=== PATIENT | male | born 1975 | race Caucasian/White ===

== ENCOUNTER 2021-08-16 20:26 | Emergency (ER) | payer SELFPAY ==
[2021-08-16 20:27] VITALS: BP 121/79; PULSE 70; RESP 16; TEMP 37.6; O2SAT 97; BMI 22.8
--- NOTE | 2021-08-16 20:43 | ED.RN ---
Pt comes to the desk and states you guys are so busy I'm going to just go to [place]
== END 2021-08-16 20:42 | disposition left against medical advice (07) ==
LOC: ED 20:44
DX: R05.9 Cough, unspecified (principal); Z53.21 Procedure and treatment not carried out due to patient leaving prior to being seen by health care provider

== ENCOUNTER 2021-09-06 16:54 | Emergency (ER) | payer SELFPAY ==
[2021-09-06 16:55] VITALS: BP 120/76; PULSE 70; RESP 16; TEMP 35.8; BMI 22.4
--- NOTE | 2021-09-06 17:23 | RAD_ITS ---
STUDY: X-RAY - RIGHT HAND REASON FOR EXAM: Male, 45 years old. Pain after trauma TECHNIQUE: 3 view(s) of the hand. COMPARISON: None. FINDINGS: Please see the impression. RAD/Hand Min 3 Views IMPRESSION: Acute nondisplaced fracture of the fifth metacarpal head. No radiopaque foreign body. Electronically Signed: Teofilo Aparicio MD at 18:30 EST Tel , Service support ,
--- NOTE | 2021-09-06 17:24 | EX.ED.UPPERE ---
HPI History of Present Illness Chief Complaint: Upper Extremity Injury Informant: patient Occured/Mechanism Mechanism/Context: Yes crush Onset/Context/Timing Onset: Yesterday Current Severity: Mild Maximum Severity: Mild Narrative Narrative: Patient presents after right hand injury. Yesterday he was stacking firewood when 1 log rolled back and crushed his right hand. He was not wearing gloves at the time. Patient has continued pain and swelling to the fourth and fifth MCP joints today. PFSH PFSH Medical History Smoker Home Medications tramadol 50 mg PO Q6H PRN 5 Days #20 tab 09/06/21 [Rx Last Taken Unknown] Allergy/AdvReac Type Severity Reaction Status Date / Time No Known Allergies Allergy Verified 09/06/21 16:57 Social History Smoking Status: Current every day smoker tobacco type: cigarettes ROS ROS ED Constitutional Constitutional ED: Denies chills or fever(s) Eyes Eyes: Denies change in vision ENT ENT ED: Denies ear pain or rhinorrhea Cardiovascular Cardiovascular: Denies chest pain or palpitations Respiratory/Chest Respiratory/Chest: Denies dyspnea Gastrointestinal Gastrointestinal: Denies abdominal pain Musculoskeletal Musculoskeletal: Reports other Details: Right hand pain and swelling Integumentary Denies Abrasions or rash Neurologic Neurologic: Denies headache(s) or paresthesias Allergic/Immunologic Allergic/Immunologic ED: Denies urticaria EXAM Physical Exam Const Vital Signs: 09/06/21 16:55 Temperature 96.5 F L Temperature Source Temporal Pulse Rate 70 Respiratory Rate 16 Blood Pressure 120/76 Blood Pressure Mean 90 Positive well nourished and well developed General Appearance ED: well developed HEENT normocephalic and atraumatic Eyes PERRL and EOMs intact bilaterally Chest Wall inspection of chest normal and palpation of chest normal Resp normal respiratory effort and clear to auscultation bilaterally Cardio regular rate and regular rhythm GI non-tender Palpation: soft Extremity Extremity Narrative: Edema and tenderness to palpation over the fourth and fifth MCP joints. Good cap refill and sensation distally. No tenderness at the wrist or forearm. Neuro oriented x3 Sensorium / Orientation: alert Psych mental status grossly normal Skin Lesions: no lesions Rashes: no rashes MDM MDM MDM Narrative Medical decision making narrative: Right hand x-rays obtained. Patient declined pain medication. Treatment and Re-Evaluation Comments:: Right hand x-rays per my interpretation reveal a fracture over the distal fifth metacarpal at the MCP joint. X-rays reviewed with the patient and family at bedside. Patient placed in an ulnar gutter splint. Following splint application patient has good cap refill distally. Patient be given prescription for tramadol and referred to Dr. Tyson, on-call for orthopedics. Discharge Plan Triage Chief Complaint: Upper Extremity Injury ED Provider: Germania Saavedra Dx/Rx/DC Orders Clinical Impression: Hand fracture, right Instructions: ED Closed Hand Fracture (Adult) Prescriptions: New tramadol 50 mg tablet 50 mg PO Q6H PRN (Reason: pain) 5 Days Qty: 20 RF: 0 Primary Care Provider: Care Physician,No Primary Referrals: Pernell Tyson MD [STAFF PHYSICIAN] - 5-7 Days Care Physician,No Primary [Primary Care Provider] - Disposition Disposition: Home, Self Care
== END 2021-09-06 18:15 | disposition home or self-care (01) ==
PROVIDERS: Emergency Provider Emergency Medicine; Visit Provider Emergency Medicine
DX: S62.91XA Unspecified fracture of right hand, initial encounter for closed fracture (principal); F17.210 Nicotine dependence, cigarettes, uncomplicated; X58.XXXA Exposure to other specified factors, initial encounter
CPT/HCPCS: 73130; 99282

== ENCOUNTER 2021-09-29 20:39 | Emergency (ER) | payer SELFPAY ==
[2021-09-29 20:40] VITALS: BP 158/82; PULSE 69; RESP 16; TEMP 36.2; O2SAT 99; BMI 22.4
--- NOTE | 2021-09-29 20:47 | EDS_ITS ---
HPI History of Present Illness Chief Complaint: Fall Detail of Chief Complaint: Fall with injury to left chest about 2 hours ago Informant: patient Onset/Context/Timing Current Severity: Severe Narrative Narrative: Patient presents to the emergency department after sustaining a fall on the ice about 2 hours ago and injuring his left chest. Patient states that he was carrying a drill underneath his left arm and fell directly onto the drill. He complains of pain with deep breath and movement. He denies hemoptysis. Denies other injuries. PFSH PFSH Medical History Smoker Home Medications tramadol 50 mg PO Q6H PRN 5 Days #20 tab 09/06/21 [Rx Last Taken Unknown] hydrocodone-acetaminophen 1 tab PO Q4H PRN PRN 2 Days #14 tablet 09/29/21 [Rx Last Taken Unknown] Allergy/AdvReac Type Severity Reaction Status Date / Time No Known Allergies Allergy Verified 09/29/21 20:42 Social History Smoking Status: Current every day smoker tobacco type: cigarettes ROS ROS ED Constitutional Constitutional ED: Reports systems reviewed and no addt'l complaints, except as documented; Denies body ache(s), change in weight or chills Eyes Eyes: Denies acute decrease in peripheral vision, change in vision, double vision or loss of vision ENT ENT ED: Reports none; Denies ear pain, lip swelling, loss taste/smell, neck pain, otalgia or sore throat Cardiovascular Cardiovascular: Reports none and other Details: Left chest wall pain ; Denies abdominal pain, chest pain with activity, leg edema, lightheadedness, palpitations, rapid heart rate or syncope Respiratory/Chest Respiratory/Chest: Reports none; Denies change in mental status, dry cough, dyspnea, hemoptysis, shortness of breath at rest or shortness of breath with exertion Gastrointestinal Gastrointestinal: Reports none; Denies abdominal pain, change in stool character, diarrhea, hematemesis, hematochezia, melena, rectal bleeding or vomiting Genitourinary Genitourinary ED: Reports none; Denies abdominal discomfort, anuria, dysuria, genital pain or polyuria Musculoskeletal Musculoskeletal: Reports none; Denies arthralgias, back pain, difficulty walking, extremity pain, muscle weakness or myalgias Integumentary Reports none; Denies abscess or rash Neurologic Neurologic: Reports none; Denies abnormal gait, confusion, focal weakness, frequent falls, headache(s), loss of vision, numbness, paresthesias, radicular pain, vertigo or weakness Psychiatric Psychiatric: Reports systems reviewed and no addt'l complaints, except as documented and none; Denies behavioral changes, confusion, difficulty concentrating, hallucinations, suicidal ideation, tactile hallucinations or visual hallucinations Endocrine Endocrinology: Denies none, cold intolerance, excessive sweating, fatigue or heat intolerance Hematologic/Lymphatic Hematologic/Lymphatic: Reports none; Denies anemia, easy bleeding or easy bruising Allergic/Immunologic Allergic/Immunologic ED: Denies as per HPI, none, lip swelling, mouth swelling, throat swelling, tongue swelling or hives EXAM Physical Exam Const Vital Signs: 09/29/21 20:40 09/29/21 20:42 Temperature 97.2 F L Temperature Source Temporal Pulse Rate 69 Respiratory Rate 16 Respiratory Effort Normal Respiratory Pattern Normal Blood Pressure 158/82 H Blood Pressure Mean 107 Pulse Ox 99 Oxygen Delivery Method Room Air Positive well nourished and well developed General Appearance ED: well developed and NAD HEENT Reports TM's clear and moist mucous membranes normocephalic and atraumatic; Negative for trauma or tenderness Tympanic Membrane ED: Yes TM's clear Eyes PERRL and EOMs intact bilaterally General Eye ED: Negative for pale conjunctiva or scleral icterus Neck no lymphadenopathy, supple and no JVD General: Negative for tenderness Chest Wall palpation of chest normal Chest Narrative: Patient has tenderness palpation over the left mid anterior chest wall into the midaxillary line that seems to reproduce his pain. There is no crepitus or subcu emphysema. There is no ecchymosis or bruising. Chest: Negative for tenderness Resp normal respiratory effort and clear to auscultation bilaterally Effort and Inspection: Negative for respiratory distress or pain with movement Auscultation: Negative for rhonchi, wheezes or diminished lung sounds Cardio regular rate, regular rhythm, S1 normal heart sound, S2 normal heart sound and no murmurs Peripheral Pulses: pulses 2+ throughout GI normal to inspection, nondistended, normoactive bowel sounds, soft to palpation, non-tender, non-distended and no masses Back/Spine no CVA tenderness and no thoracic nor lumbar tenderness Extremity normal to inspection General Extremety ED: Negative for edema General Extremity: Negative for edema Neuro oriented x3, CN's II-XII intact bilaterally, no sensory deficits noted and gait normal Sensorium / Orientation: awake, alert, oriented to person, oriented to place and oriented to time Motor Exam: strength 5/5 throughout and strength abnormal Psych mental status grossly normal Skin no rashes or lesions noted and no wounds MDM MDM MDM Narrative Medical decision making narrative: Patient was given 1 Spring p.o. At this point I suspect rib contusion although cannot rule out acute nondisplaced fracture of the rib. Patient will be given a prescription for Spring for pain. He is to follow-up with primary care physician radio communication coordinator for no doc within the next 5 to 7 days. He is advised to return if increasing shortness of breath, hemoptysis, worsening pain, or conditions worsen anyway. Radiography Diagnostic Testing: Clinical Impression(s) from Imaging Studies Ribs w/Chest X-Ray 09/29/21 20:50 IMPRESSION: Negative chest and left ribs series. Electronically Signed: Gualberto Rogers MD at 21:12 EST Reading Location ID and State: [facility] / [place] , Service support , Three-view x-rays with PA chest obtained interpreted by myself as no acute rib fractures and no evidence of pneumothorax. Radiology was in agreement. Discharge Plan Triage Chief Complaint: Fall ED Provider: Zoya Love Dx/Rx/DC Orders Clinical Impression: Fall, Chest wall contusion Instructions: ED Mechanical Fall, ED Contusion, Rib Prescriptions: New hydrocodone-acetaminophen [hydrocodone-acetaminophen] 1 TABLET tablet 1 tab PO Q4H PRN PRN (Reason: Pain) 2 Days Qty: 14 RF: 0 No Action tramadol 50 mg tablet 50 mg PO Q6H PRN (Reason: pain) 5 Days Qty: 20 RF: 0 Primary Care Provider: Care Physician,No Primary Referrals: Tho Stratton MD [STAFF PHYSICIAN] - 3-5 Days Care Physician,No Primary [Primary Care Provider] - Disposition Disposition: Home, Self Care
--- NOTE | 2021-09-29 20:50 | RAD_ITS ---
EXAM: XR LEFT RIBS AND AP CHEST, 3 OR MORE VIEWS CLINICAL INDICATION: injury pain TECHNIQUE: Frontal and oblique views of the left ribs and frontal view of the chest. This report was created using [employer] report generation technology. COMPARISON: None. FINDINGS: LUNGS AND PLEURAL SPACES: Unremarkable. No consolidation or edema. No pneumothorax. No effusion. HEART: Unremarkable. Cardiac silhouette not enlarged. MEDIASTINUM: Central airways and mediastinal contour are unremarkable. BONES/JOINTS: Unremarkable. No evidence of displaced rib fractures. RAD/Ribs Uni Min 3V w/PA Chest IMPRESSION: Negative chest and left ribs series. Electronically Signed: Gualberto Rogers MD at 21:12 EST ,
[2021-09-29] MEDS: HYDROcodone Bitartrate/Apap 5/325 Tablet PO (21:29)
== END 2021-09-29 21:33 | disposition home or self-care (01) ==
PROVIDERS: Emergency Provider Emergency Medicine; Visit Provider Emergency Medicine
DX: S20.212A Contusion of left front wall of thorax, initial encounter (principal); W01.198A Fall on same level from slipping, tripping and stumbling with subsequent striking against other object, initial encounter; F17.210 Nicotine dependence, cigarettes, uncomplicated
CPT/HCPCS: 71101; 99283

== ENCOUNTER 2022-02-05 11:21 | Emergency (ER) | payer MEDICAID, SELFPAY ==
[2022-02-05 11:23] VITALS: BP 118/78; PULSE 63; RESP 16; TEMP 36.6; O2SAT 99; BMI 22.4
--- NOTE | 2022-02-05 11:41 | EX.ED.UPPERE ---
HPI History of Present Illness Chief Complaint: Laceration Detail of Chief Complaint: Laceration right thumb Informant: patient Occured/Mechanism Comment: Patient radial side right thumb proximal IP joint Onset/Context/Timing Context: Sudden Onset Timing: - (Bleeding for 1 hour) Quality of Pain: - (Denies pain) Location: Dorsal radial side right thumb proximal IP joint Current Severity: Mild Maximum Severity: Moderate Worsened by: Not applicable Relieved by: Nothing Associated Symptoms Associated Symptoms: Negative for Parasthesia, Weakness or Loss of Funtion Narrative Narrative: Patient is a 46-year-old [id number] male who presents with laceration to his thumb. This occurred while drywalling. Last tetanus was 3 to 4 years ago. He denies paresthesia, anesthesia medics. He has no medication allergies. He denies loss of function. Tetanus Immunization: <5 years Prior similar symptoms: Yes Recent Illness/Hospitalization: No PFSH PFSH Medical History Asthma Emphysema lung Smoker Allergy/AdvReac Type Severity Reaction Status Date / Time No Known Allergies Allergy Verified 02/05/22 11:26 Surgical History Hx of cholecystectomy Social History (Updated 02/05/22 @ 11:[address] Faizan Herbert MD) household members: none Smoking Status: Current every day smoker tobacco type: cigarettes substance use type: does not use ROS ROS ED Cardiovascular Cardiovascular: Denies palpitations Gastrointestinal Gastrointestinal: Denies nausea or vomiting Neurologic Neurologic: Reports other Details: And read HPI narrative ; Denies paresthesias or weakness Hematologic/Lymphatic Hematologic/Lymphatic: Denies easy bleeding or easy bruising EXAM Physical Exam Const Vital Signs: 02/05/22 11:23 Temperature 97.8 F Temperature Source Temporal Pulse Rate 63 Respiratory Rate 16 Blood Pressure 118/78 Blood Pressure Mean 91 Pulse Ox 99 Oxygen Delivery Method Room Air Positive well nourished and well developed; Negative for obese, cachectic or contractures General Appearance ED: well developed; Negative for cachectic or contractures Nutritional Appearance: Negative for cachectic or obese HEENT Reports moist mucous membranes normocephalic and atraumatic Eyes PERRL and EOMs intact bilaterally Eyes Narrative: Sclera is anicteric. Conjunctive is pink. Neck full ROM Resp normal respiratory effort Cardio regular rate and regular rhythm Extremity Negative for normal to inspection Extremity Narrative: Flap type laceration dorsal surface right thumb. The extensor pollicis longus and extensor pollicis brevis are functionally intact. Cap refills normal. Sensation is normal. There is no subungual hematoma noted. Neuro oriented x3 and CN's II-XII intact bilaterally Neuro Narrative: Median, radial and ulnar function intact. Sensorium / Orientation: alert, oriented to person, oriented to place and oriented to time Psych mental status grossly normal Skin Lesions: no lesions Rashes: no rashes Trauma: other 2.4 cm in length. Flap-like. MDM MDM MDM Narrative Medical decision making narrative: Patient has a laceration which will require repair. Please read procedure note. There is no neurovascular mice. Procedures Other Procedures Procedure(s): Patient has a 2.4 cm laceration dorsal side right thumb. The thumb was not sized by metacarpal block. Total of 4 cc of 1% lidocaine without epinephrine was used. The wound was irrigated with 200 cc of normal saline. Using 5-0 Ethilon 4 simple interrupted sutures were was placed. Hemostasis controlled. Discharge Plan Triage Chief Complaint: Laceration ED Provider: Faizan Herbert Dx/Rx/DC Orders Clinical Impression: Laceration of right thumb without complication Instructions: ED Laceration, Hand: All Closures Primary Care Provider: Care Physician,No Primary Referrals: Lashawn Castrejon MD [STAFF PHYSICIAN] - 10 Day for suture removal Care Physician,No Primary [Primary Care Provider] - Activity Restrictions/Additional Instructions: 1. Keep wound clean and dry for the next 24 to 48 hours 2. Clean wound with peroxide and Q-tip 3 times a day then apply bacitracin ointment
[2022-02-05 12:21] VITALS: BP 132/64; PULSE 74; RESP 14; TEMP 37.1; O2SAT 100
== END 2022-02-05 12:48 | disposition home or self-care (01) ==
PROVIDERS: Emergency Provider Emergency Medicine; Visit Provider Emergency Medicine
DX: S61.011A Laceration without foreign body of right thumb without damage to nail, initial encounter (principal); W26.8XXA Contact with other sharp object(s), not elsewhere classified, initial encounter; Y93.89 Activity, other specified; F17.210 Nicotine dependence, cigarettes, uncomplicated
CPT/HCPCS: 12001; 99283

== ENCOUNTER 2022-11-28 02:48 | Emergency (ER) | payer MEDICAID, SELFPAY ==
[2022-11-28 02:50] VITALS: BP 130/78; PULSE 102; RESP 10; TEMP 36.4; O2SAT 98; BMI 20.6
[2022-11-28 03:11] LABS: Absolute Lymphocyte Count 3.51 X10^3/uL (0.83-4.51); Absolute Neutrophil Count 5.3 X10^3/uL (2.0-7.7); Basophil# 0.13 X10^3/uL; Basophil% 1.3 % (0-1); Eosinophil# 0.12 X10^3/uL; Eosinophils% 1.2 % (0-5); Hematocrit 38.9 % (40-54); Lymphocyte # 3.51 X10^3/ul (0.83-4.51); Lymphocyte % 35.8 % (19-41); Mean Corpuscular Hgb 31.1 pg (27.0-32.0); Mean Corpuscular Volume 86.4 fL (80-94); Mean Platelet Vol. 9.3 fl (6.2-12.0); Monocyte# 0.72 X10^3/uL; Monocyte% 7.3 % (0-10); NRBC Flagged by Analyzer 0 % (0-5); Neutrophil # 5.29 X10^3/uL (2.7-7.7); Neutrophil % 54.1 % (47-70); Platelet Count 267 K/mm3 (150-450); RBC Distribution Width CV 12.1 % (11.6-14.6); RBC Distribution Width SD 38.5 fl (35.1-43.9); White Blood Count 9.8 K/mm3 (4.4-11.0)
[2022-11-28 03:50] VITALS: BP 110/66; PULSE 79; RESP 21; O2SAT 100
[2022-11-28 03:50] LABS: Anion Gap 6 (5-15); BUN 12 mg/dL (7-18); BUN/Creat Ratio 11.1 RATIO (10-20); Calcium,Total 9.6 mg/dL (8.5-10.1); Chloride 102 mmol/L (98-107); Creatinine, Serum 1.08 mg/dL (0.70-1.30); EST Glomerular Filtration Rate 79 mL/min (>60); Est Glom Filt Rate - Afr Amer 95 mL/min (>60); Estimated Creatinine Clearance 84.18 ml/min; Glucose 129 mg/dL (74-106); Potassium 3.3 mmol/L (3.5-5.1); Sodium Level 134 mmol/L (136-145)
[2022-11-28 03:56] LABS: AST(SGOT) 15 U/L (15-37); Alanine Aminotransfer ALT/SGPT 23 U/L (16-61); Albumin, Serum 3.9 g/dL (3.2-5.0); Alkaline Phosphatase 55 U/L (45-117); Bilirubin, Direct 0.14 mg/dL (0.00-0.30); Globulin 3.2 g/dL (2.2-4.2); Protein, Total 7.1 g/dL (6.4-8.2)
[2022-11-28 04:00] VITALS: BP 118/80; PULSE 74; RESP 19; O2SAT 100
[2022-11-28 05:00] VITALS: BP 106/80; PULSE 68; RESP 17; O2SAT 100
[2022-11-28 06:00] VITALS: BP 106/63; PULSE 64; RESP 12; O2SAT 100
--- NOTE | 2022-11-28 06:34 | CT_ITS ---
EXAM: CT ABDOMEN AND PELVIS WITH INTRAVENOUS CONTRAST CLINICAL INDICATION: abdominal pain, general illness TECHNIQUE: Helically acquired images were obtained of the abdomen and pelvis with intravenous contrast. This CT exam was performed using one or more of the following dose reduction techniques: automated exposure control, adjustment of the mA and/or kV according to patient size, and/or use of iterative reconstruction technique. This report was created using [employer] report generation technology. CONTRAST: 100 cc of Isovue-370 IV. RADIATION DOSE: CTDIvol = 10.13 mGy, DLP = 520.71 mGy-cm. COMPARISON: None. FINDINGS: LOWER THORAX: Small groundglass opacity nodule measuring 6 mm right lower lobe peripherally abutting the pleura. No cardiomegaly. No significant pericardial effusion. ABDOMEN: LIVER: Unremarkable. Homogeneous. No focal mass. GALLBLADDER AND BILE DUCTS: Cholecystectomy. No intra- or extrahepatic biliary ductal dilation. PANCREAS: Unremarkable. No focal cystic or solid mass. SPLEEN: Unremarkable. Normal size without focal cystic or solid mass. ADRENALS: Unremarkable. No nodules. KIDNEYS AND URETERS: Unremarkable. Normal renal size and position. No hydronephrosis. STOMACH AND BOWEL: Question of mild wall thickening of the transverse colon versus lack of distention. PELVIS: APPENDIX: No evidence of acute appendicitis. BLADDER: Unremarkable. REPRODUCTIVE: Unremarkable as visualized. No mass. ABDOMEN and PELVIS: INTRAPERITONEAL SPACE: Unremarkable. No ascites or other fluid collection. No free air. BONES/JOINTS: Unremarkable. No suspicious lytic or blastic abnormality. SOFT TISSUES: Unremarkable. No discrete abdominal or pelvic wall hernia. VASCULATURE: Unremarkable. Abdominal aorta is non-dilated. LYMPH NODES: Unremarkable. No enlarged lymph nodes. CT/Abdomen/Pelvis W IV Cont ONLY IMPRESSION: 1. Question of mild wall thickening of the transverse colon versus lack of distention. Colitis not excluded. 2. Small groundglass opacity nodule measuring 6 mm right lower lobe peripherally abutting the pleura. 3. Cholecystectomy. RECOMMENDATIONS: Small groundglass opacity nodule measuring 6 mm right lower lobe peripherally abutting the pleura. Fleischner Society Guidelines recommend follow-up chest CT at 6-12 months to confirm persistence. If stable, chest CT every 2 years until 5 years. Electronically Signed: Deandre Becker MD at 7:41 EDT ,
[2022-11-28] MEDS: 0.9% Normal Saline 1,000 ML 999 ML IV (06:40)
[2022-11-28 07:00] VITALS: BP 134/78; PULSE 48; RESP 16; O2SAT 98
[2022-11-28 07:12] LABS: International Normalized Ratio 1.1; Prothrombin Time (Protime)PT. 14.2 SECONDS (11.7-14.9)
[2022-11-28 08:00] LABS: Bacteria 0 SEEN /hpf (None Seen); Mucous, Urine 0 SEEN /hpf (<or=2+); Squamous Epithelial Cells - UA 0 SEEN /hpf (0-5); White Blood Cells 0 SEEN /hpf (0-5)
[2022-11-28 08:11] LABS: Color, Urine Yellow (Yellow); Glucose, Dipstick Normal (Normal); Ketone-Dipstick 50 mg/dl (Negative); Leukocyte Esterase-Dipstick Negative /ul (Negative); Nitrite-Dipstick Negative (Negative); Occult Blood-Urine 10 /ul (Negative); Protein-Dipstick 15 mg/dl (Negative); Urine Bilirubin Dipstick Negative (Negative); Urine Clarity Clear (Clear); Urine Urobilinogen Normal (Normal); Urine pH 6.5 (5.0 - 8.0)
[2022-11-28 08:17] LABS: Red Blood Cells-Urine 0-5 SEEN /hpf (0-5)
[2022-11-28 08:27] LABS: Amphetamine Urine VISTA POSITIVE (<1000 ng/mL); Barbiturate Urine VISTA NEGATIVE (< 200 ng/mL); Benzodiazepine Urine VISTA NEGATIVE (< 200 ng/mL); Cocaine Urine VISTA NEGATIVE (< 300 ng/mL); Ecstacy Urine VISTA POSITIVE (< 500 ng/mL); Methadone Urine VISTA NEGATIVE (< 300 ng/mL); PCP Urine VISTA NEGATIVE (< 25 ng/mL); THC Urine VISTA POSITIVE (< 50 ng/mL); Vista UDS pH Range 6
--- NOTE | 2022-11-28 08:46 | EDS_ITS ---
HPI HPI - GI History of Present Illness Chief Complaint: GI Bleed Informant: patient Narrative Narrative: Patient is a 47-year-old male with ongoing history of what he says is hematemesis as well as hemorrhoids presenting with abdominal pain and concern for GI bleed. Patient tells me he thinks he is in liver failure because having pain over his liver. Initial evaluation patient is quite a poor historian and has a hard time staying focused on his answers as well as finishing his sentences. He is not obtunded however. He states that he was at recently at [facility] on December 12 for bleeding in his GI tract and he was a dmitted but he then left AGAINST MEDICAL ADVICE because he said he got scared. He states tonight he had worsening abdominal pain. His brother is at the bedside however he asked his brother to step out when I am in the room. Patient states he feels that his body is vibrating and cannot move well. Patient does report that he did take some laxatives today because he was feeling constipated. He states he has an appointment to see GI, Dr. Tyson, on . Patient admits to marijuana use but denies any other drug use. Denies alcohol use. PFSH PFSH Medical History Asthma Emphysema lung Esophageal mass GI bleed Smoker Home Medications albuterol sulfate 90 mcg/actuation aerosol inhaler (Ventolin HFA) 1 - 2 puff inhalation PRN PRN Shortness Of Breath Or Wheezing 11/28/22 [History Last Taken Unknown] dicyclomine 20 mg tablet 20 mg PO TID PRN abdominal pain #20 tabs 11/28/22 [Rx Last Taken Unknown] pantoprazole 40 mg tablet,delayed release 40 mg PO DAILY 11/28/22 [History Last Taken Unknown] trazodone 50 mg tablet 50 mg PO QHS 11/28/22 [History Last Taken Unknown] Allergy/AdvReac Type Severity Reaction Status Date / Time No Known Allergies Allergy Verified 02/05/22 11:26 Surgical History Hx of cholecystectomy Social History household members: none Smoking Status: Current every day smoker tobacco type: cigarettes substance use type: does not use ROS ROS ED Review of Systems ROS Unobtainable: due to encephalopathy Gastrointestinal Gastrointestinal: Reports abdominal pain, constipation, diarrhea, melena, nausea and vomiting EXAM Physical Exam Const Vital Signs: 11/28/22 02:50 11/28/22 03:01 11/28/22 03:50 Temperature 97.6 F L Temperature Source Oral Pulse Rate 102 H 79 Respiratory Rate 10 L 21 H Respiratory Effort Normal Non-Labored Respiratory Pattern Normal Blood Pressure 130/78 H 110/66 Blood Pressure Mean 95 80 Pulse Ox 98 100 Oxygen Delivery Method Room Air Room Air 11/28/22 04:00 11/28/22 05:00 11/28/22 06:00 Temperature Temperature Source Pulse Rate 74 68 64 Respiratory Rate 19 H 17 12 Respiratory Effort Respiratory Pattern Blood Pressure 118/80 106/80 106/63 Blood Pressure Mean 92 88 77 Pulse Ox 100 100 100 Oxygen Delivery Method Room Air Room Air 11/28/22 07:00 Temperature Temperature Source Pulse Rate 48 L Respiratory Rate 16 Respiratory Effort Respiratory Pattern Blood Pressure 134/78 H Blood Pressure Mean 96 Pulse Ox 98 Oxygen Delivery Method Room Air Positive well developed Constitutional Narrative: Thin General Appearance ED: well developed and NAD HEENT Reports dry mucous membranes normocephalic and atraumatic Mouth ED: Yes dry mucous membranes Mouth: dry mucous membranes Eyes PERRL and EOMs intact bilaterally General Eye ED: Negative for pale conjunctiva or scleral icterus Neck supple Neck Narrative: No meningeal signs Resp normal respiratory effort and clear to auscultation bilaterally Cardio regular rate, regular rhythm and no murmurs GI non-distended GI Narrative: Patient points to his suprapubic and epigastric areas where his pain is however he does not have tenderness to palpation Auscultation: normoactive bowel sounds Palpation: soft; Negative for guarding or rigid Back/Spine no CVA tenderness Extremity full ROM Neuro moves all extremities and no sensory deficits noted Sensorium / Orientation: alert and oriented to person Motor Exam: general weakness Psych Psych Narrative: Speaking in a low tone, mumbling and trailing off. Poor eye contact. Seems to have a hard time concentrating. Mood & Affect: anxious Skin no wounds General Skin Exam: Negative for jaundice MDM MDM MDM Narrative Medical decision making narrative: Patient is a 47-year-old male presenting with a vague and convoluted story but seems to be his chief complaint abdominal pain and bleeding in his GI tract. Not sure if patient is intoxicated or has a psychiatric history. His brother denies either of these things. Protocol orders were placed including a CBC and a CMP. These are largely normal. Potassium is mildly low at 3.3 as well as a sodium 134 however he is not anemic. His hemoglobin is 14.0. He has normal liver panel and a normal bilirubin. His ammonia level is normal. His platelets, PT and INR are also normal which makes liver failure less likely. CT of the abdomen pelvis is obtained which shows questionable under distention of the transverse colon versus colitis. When I went to reevaluate the patient he is now much more alert. He is awake. He is giving a more thorough history. He states that he has had 14 years of vomiting blood. He reiterates that he was at [facility] and was too afraid to be admitted at that time. He states he has outpatient follow-up with GI this coming . Patient denies any drug use. I did inform him that his talk screen came back positive for amphetamines and MDMA but he is insistent that he did not use anything. Not sure if this is a false positive or if this explains his presentation upon arrival. Patient will be treated with Bentyl. He is already on Protonix which does seem to be helping a lot of his esophageal symptoms. Given that he is returned to his baseline, is hemodynamically stable will discharge home. As his symptoms been going on for quite some time he does not have a leukocytosis, signs of acute blood loss or even chronic blood loss I think he stable for outpatient follow-up. He did have dark red blood on rectal exam but not sure if it is from GI bleeding versus hemorrhoids. Patient is informed of incidental findings on his CT of his chest. Lab Data Attestation: I reviewed the patient's lab results. Labs: Laboratory Results - last 24 hr 11/28/22 11/28/22 11/28/22 02:56 02:56 02:56 WBC 9.8 RBC 4.50 L Hgb 14.0 Hct 38.9 L MCV 86.4 MCH 31.1 MCHC 36.0 RDW Std Deviation 38.5 RDW Coeff of Edward 12.1 Plt Count 267 MPV 9.3 Immature Gran % (Auto) 0.300 Neut % (Auto) 54.1 Lymph % (Auto) 35.8 [place] % (Auto) 7.3 Eos % (Auto) 1.2 Baso % (Auto) 1.3 H Absolute Neuts (auto) 5.3 Absolute Lymphs (auto) 3.51 Nucleated RBC % 0 PT INR Sodium 134 L Potassium 3.3 L Chloride 102 Carbon Dioxide 26.0 Anion Gap 6 BUN 12 Creatinine 1.08 Estim Creat Clear Calc 84.18 Est GFR (MDRD) Af Amer 95 Est GFR (MDRD) Non-Af 79 BUN/Creatinine Ratio 11.1 Glucose 129 H Calcium 9.6 Total Bilirubin 0.50 Direct Bilirubin 0.14 AST 15 ALT 23 Alkaline Phosphatase 55 Ammonia Total Protein 7.1 Albumin 3.9 Globulin 3.2 Urine Color Urine Clarity Urine pH Ur Specific [place] Urine Protein Urine Glucose (UA) Urine Ketones Urine Occult Blood Urine Nitrite Urine Bilirubin Urine Urobilinogen Ur Leukocyte Esterase Urine RBC Urine WBC Ur Squamous Epith Cells Urine Bacteria Urine Mucus Urine Opiates Screen Urine Methadone Screen Ur Barbiturates Screen Ur Phencyclidine Scrn Ur Amphetamines Screen MDMA (Ecstasy) Screen U Benzodiazepines Scrn Urine Cocaine Screen U Cannabinoids Screen Ur Drug Screen Comment 11/28/22 11/28/22 11/28/22 06:42 06:42 07:40 WBC RBC Hgb Hct MCV MCH MCHC RDW Std Deviation RDW Coeff of Edward Plt Count MPV Immature Gran % (Auto) Neut % (Auto) Lymph % (Auto) [place] % (Auto) Eos % (Auto) Baso % (Auto) Absolute Neuts (auto) Absolute Lymphs (auto) Nucleated RBC % PT 14.2 INR 1.1 Sodium Potassium Chloride Carbon Dioxide Anion Gap BUN Creatinine Estim Creat Clear Calc Est GFR (MDRD) Af Amer Est GFR (MDRD) Non-Af BUN/Creatinine Ratio Glucose Calcium Total Bilirubin Direct Bilirubin AST ALT Alkaline Phosphatase Ammonia 24.0 Total Protein Albumin Globulin Urine Color Urine Clarity Urine pH Ur Specific [place] Urine Protein Urine Glucose (UA) Urine Ketones Urine Occult Blood Urine Nitrite Urine Bilirubin Urine Urobilinogen Ur Leukocyte Esterase Urine RBC Urine WBC Ur Squamous Epith Cells Urine Bacteria Urine Mucus Urine Opiates Screen NEGATIVE Urine Methadone Screen NEGATIVE Ur Barbiturates Screen NEGATIVE Ur Phencyclidine Scrn NEGATIVE Ur Amphetamines Screen POSITIVE H MDMA (Ecstasy) Screen POSITIVE H U Benzodiazepines Scrn NEGATIVE Urine Cocaine Screen NEGATIVE U Cannabinoids Screen POSITIVE H Ur Drug Screen Comment 11/28/22 07:40 WBC RBC Hgb Hct MCV MCH MCHC RDW Std Deviation RDW Coeff of [place] Plt Count MPV Immature Gran % (Auto) Neut % (Auto) Lymph % (Auto) [place] % (Auto) Eos % (Auto) Baso % (Auto) Absolute Neuts (auto) Absolute Lymphs (auto) Nucleated RBC % PT INR Sodium Potassium Chloride Carbon Dioxide Anion Gap BUN Creatinine Estim Creat Clear Calc Est GFR (MDRD) Af Amer Est GFR (MDRD) Non-Af BUN/Creatinine Ratio Glucose Calcium Total Bilirubin Direct Bilirubin AST ALT Alkaline Phosphatase Ammonia Total Protein Albumin Globulin Urine Color Yellow Urine Clarity Clear Urine pH 6.5 Ur Specific [place] 1.010 Urine Protein 15 H Urine Glucose (UA) Normal Urine Ketones 50 H Urine Occult Blood 10 H Urine Nitrite Negative Urine Bilirubin Negative Urine Urobilinogen Normal Ur Leukocyte Esterase Negative Urine RBC 0-5 SEEN Urine WBC 0 SEEN Ur Squamous Epith Cells 0 SEEN Urine Bacteria 0 SEEN Urine Mucus 0 SEEN Urine Opiates Screen Urine Methadone Screen Ur Barbiturates Screen Ur Phencyclidine Scrn Ur Amphetamines Screen MDMA (Ecstasy) Screen U Benzodiazepines Scrn Urine Cocaine Screen U Cannabinoids Screen Ur Drug Screen Comment Radiography Diagnostic Testing: Clinical Impression(s) from Imaging Studies Abdomen/Pelvis CT 11/28/22 06:34 IMPRESSION: 1. Question of mild wall thickening of the transverse colon versus lack of distention. Colitis not excluded. 2. Small groundglass opacity nodule measuring 6 mm right lower lobe peripherally abutting the pleura. 3. Cholecystectomy. RECOMMENDATIONS: Small groundglass opacity nodule measuring 6 mm right lower lobe peripherally abutting the pleura. Fleischner Society Guidelines recommend follow-up chest CT at 6-12 months to confirm persistence. If stable, chest CT every 2 years until 5 years. Electronically Signed: Deandre Becker MD at 7:41 EDT , Discharge Plan Triage Chief Complaint: GI Bleed ED Provider: Britany Lane Dx/Rx/DC Orders Clinical Impression: GI bleed, Abdominal pain, Incidental pulmonary nodule Instructions: ED Pulmonary Nodule, Solitary, ED Lower GI Bleeding (Stable) Prescriptions: New dicyclomine 20 mg tablet 20 mg PO TID PRN (Reason: abdominal pain) Qty: 20 0RF No Action trazodone 50 mg tablet 50 mg PO QHS pantoprazole 40 mg tablet,delayed release (DR/EC) 40 mg PO DAILY albuterol sulfate [Ventolin HFA] 90 mcg/actuation HFA aerosol inhaler 1 - 2 puff INHALATION PRN PRN (Reason: Shortness Of Breath Or Wheezing) Primary Care Provider: Care Physician,No Primary Referrals: Alma Winters [Non-Staff] - As soon as possible Care Physician,No Primary [Primary Care Provider] - Activity Restrictions/Additional Instructions: Please follow-up with your GI doctor as scheduled this week. Continue take your antacids. While you do have blood on your rectal exam your vitals and labs are all stable. No signs of liver failure. You have a pulmonary nodule that needs outpatient monitoring/follow-up. You been given a copy of your CT report. Disposition Disposition: Home, Self Care
[2022-11-28] MEDS: Dicyclomine 10 MG Capsule 20 MG PO (08:57)
== END 2022-11-28 09:16 | disposition home or self-care (01) ==
PROVIDERS: Emergency Provider Emergency Medicine; Visit Provider Emergency Medicine
DX: K92.2 Gastrointestinal hemorrhage, unspecified (principal); R91.1 Solitary pulmonary nodule; R10.9 Unspecified abdominal pain; F17.210 Nicotine dependence, cigarettes, uncomplicated; J45.909 Unspecified asthma, uncomplicated
CPT/HCPCS: 74177; 80048; 80076; 80307; 81001; 82140; 85025; 85610; 96360; 96361; 99284; J7030; Q9967; A4216

== ENCOUNTER 2024-08-02 08:27 | Emergency (ER) | payer MEDICAID, SELFPAY ==
[2024-08-02 08:28] VITALS: BP 125/75; PULSE 88; RESP 16; TEMP 36.2; O2SAT 99; BMI 19.1
[2024-08-02] MEDS: Fluorescein 1 MG STRIP 1 STRIP RIGHT EYE (09:54)
[2024-08-02] MEDS: Tetracaine 0.5% Ophthalmic Bottle 1 DRP RIGHT EYE (09:54)
--- NOTE | 2024-08-02 09:56 | EX.ED.VIS.EY ---
HPI History of Present Illness Chief Complaint: Eye Problem Detail of Chief Complaint: Right eye pain Informant: patient Narrative Narrative: Patient presents to the emergency department complaint of right eye pain that started last evening around 9:00. 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 He denies any foreign bodies entering his eye. He welded from 5-9 and around 9:00 is when he started having pain. Denies any pain in the left eye. He states that he tried not to look at the beam. Patient complains of photophobia and pain. PFSH PFSH Medical History Asthma Emphysema lung Esophageal mass GI bleed Smoker Home Medications ?Medication ?Instructions ?Recorded ?Last Taken ?Type albuterol sulfate 90 mcg/actuation 1 - 2 puff inhalation PRN PRN 11/28/22 Unknown History aerosol inhaler (Ventolin HFA) Shortness Of Breath Or Wheezing dicyclomine 20 mg tablet 20 mg PO TID PRN abdominal pain 11/28/22 Unknown Rx #20 tabs pantoprazole 40 mg tablet,delayed 40 mg PO DAILY 11/28/22 Unknown History release trazodone 50 mg tablet 50 mg PO QHS 11/28/22 Unknown History hydrocodone-acetaminophen 5-325mg 1 tab PO Q4H PRN PRN Pain 2 days 08/02/24 Unknown Rx 5mg-325mg #10 TABLETS Allergy/AdvReac Type Severity Reaction Status Date / Time No Known Allergies Allergy Verified 08/02/24 08:27 Surgical History Hx of cholecystectomy Social History household members: none Smoking Status: Current every day smoker tobacco type: cigarettes substance use type: does not use ROS ROS ED Review of Systems ROS Unobtainable: other Constitutional Constitutional ED: Reports lethargy; Denies chills, fever(s), sweats or weight loss Eyes Eyes: Denies blurry vision, change in vision or diplopia ENT ENT ED: Reports other Details: Right eye pain ; Denies rhinorrhea or sore throat Cardiovascular Cardiovascular: Denies chest pain, orthopnea or racing heartbeat Respiratory/Chest Respiratory/Chest: Denies cough, dyspnea, dyspnea on exertion, orthopnea or sputum Gastrointestinal Gastrointestinal: Denies abdominal pain, diarrhea, nausea or vomiting Genitourinary Genitourinary ED: Denies dysuria, hematuria or urinary frequency Musculoskeletal Musculoskeletal: Denies arthralgias, back pain, myalgias or neck pain Integumentary Denies abscess, Abrasions or rash Neurologic Neurologic: Denies headache(s) or weakness Psychiatric Psychiatric: Denies anxiety, depression or suicidal thoughts Endocrine Endocrinology: Denies polydipsia, polyphagia or polyuria Hematologic/Lymphatic Hematologic/Lymphatic: Denies easy bleeding, easy bruising or lymphadenopathy Allergic/Immunologic Allergic/Immunologic ED: Denies mouth swelling, tongue swelling or urticaria EXAM Physical Exam Const Vital Signs: 08/02/24 08:28 Temperature 97.2 F L Temperature Source Temporal Pulse Rate 88 Respiratory Rate 16 Blood Pressure 125/75 H Blood Pressure Mean 91 Pulse Ox 99 Oxygen Delivery Method Room Air Positive well nourished and well developed General Appearance ED: well developed and NAD HEENT Reports TM's clear and moist mucous membranes normocephalic and atraumatic; Negative for trauma or tenderness Tympanic Membrane ED: Yes TM's clear Eyes PERRL and EOMs intact bilaterally Eyes Narrative: Patient has diffuse conjunctival erythema. Eyelids were everted and no foreign bodies noted. Patient had 2 drops of tetracaine instilled to the right eye. He had good pain relief with that. I was stained with fluorescein and there was no evidence of corneal abrasion. No foreign bodies noted in the cornea. General Eye ED: Negative for pale conjunctiva or scleral icterus Neck no lymphadenopathy, supple and no JVD General: Negative for tenderness Chest Wall inspection of chest normal and palpation of chest normal Chest: Negative for tenderness Resp normal respiratory effort and clear to auscultation bilaterally Effort and Inspection: Negative for respiratory distress or pain with movement Auscultation: Negative for rhonchi, wheezes or diminished lung sounds Cardio regular rate, regular rhythm, S1 normal heart sound, S2 normal heart sound and no murmurs Peripheral Pulses: pulses 2+ throughout GI normal to inspection, nondistended, normoactive bowel sounds, soft to palpation, non-tender, non-distended and no masses Back/Spine no CVA tenderness and no thoracic nor lumbar tenderness Extremity normal to inspection General Extremety ED: Negative for edema General Extremity: Negative for edema Neuro oriented x3, CN's II-XII intact bilaterally, no sensory deficits noted and gait normal Sensorium / Orientation: awake, alert, oriented to person, oriented to place and oriented to time Motor Exam: strength 5/5 throughout and strength abnormal Psych mental status grossly normal Skin no rashes or lesions noted and no wounds MDM MDM MDM Narrative Medical decision making narrative: 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 Do not appreciate any evidence of foreign body. Will discuss with ophthalmology for follow-up. Patient discussed with Dr. Grant who recommended erythromycin ointment and outpatient follow-up tomorrow morning at their office at 9:30 AM. Patient comfortable with plan. Discharge Plan Triage Chief Complaint: Eye Problem ED Provider: Zoya Love Dx/Rx/DC Orders Clinical Impression: Email Specialist's flash of right eye Instructions: Ultraviolet Keratitis, ED Flash Burn to Eye Prescriptions: New hydrocodone-acetaminophen 5-325 mg tablet 1 tab PO Q4H PRN PRN (Reason: Pain) 2 Days Qty: 10 0RF No Action trazodone 50 mg tablet 50 mg PO QHS pantoprazole 40 mg tablet,delayed release (DR/EC) 40 mg PO DAILY albuterol sulfate [Ventolin HFA] 90 mcg/actuation HFA aerosol inhaler 1 - 2 puff INHALATION PRN PRN (Reason: Shortness Of Breath Or Wheezing) dicyclomine 20 mg tablet 20 mg PO TID PRN (Reason: abdominal pain) Qty: 20 0RF Primary Care Provider: Care Physician,No Primary Referrals: Lucita Grant MD [Med Staff - Active Staff] - 08/02/24 9:30 am Care Physician,No Primary [Primary Care Provider] - Activity Restrictions/Additional Instructions: Address is [address] [place] [address] Print Language: Romanian
[2024-08-02 11:18] VITALS: BP 138/72; PULSE 86; RESP 15; TEMP 36.5; O2SAT 100
== END 2024-08-02 11:19 | disposition home or self-care (01) ==
PROVIDERS: Emergency Provider Emergency Medicine; Visit Provider Emergency Medicine
DX: H57.11 Ocular pain, right eye (principal); F17.210 Nicotine dependence, cigarettes, uncomplicated
CPT/HCPCS: 99283

== ENCOUNTER 2025-08-14 17:00 | Emergency (ER) | payer SELFPAY ==
[2025-08-14 17:01] VITALS: BP 117/68; PULSE 104; RESP 18; TEMP 36.4; O2SAT 100
[2025-08-14 18:39] VITALS: BMI 21.9
--- NOTE | 2025-08-14 19:01 | EKG12_ITS ---
Test Reason : DYSRHYTHMIA Blood Pressure : */* mmHG Vent. Rate : 87 BPM Atrial Rate : 87 BPM P-R Int : 146 ms QRS Dur : 80 ms QT Int : 348 ms P-R-T Axes : 61 67 50 degrees QTcB Int : 418 ms Normal sinus rhythm ST DEPRESSION Borderline ECG Confirmed by David Whitaker ([id number]), newspaper photo editor HONG GRAHAM ([id number]) on 08/19/2025 9:13:30 AM Referred By: Confirmed By: David Whitaker
--- NOTE | 2025-08-14 19:02 | EDS_ITS ---
HPI History of Present Illness Chief Complaint: Upper Extremity Injury Detail of Chief Complaint: left arm and chest, clavicle, neck pain Informant: patient Narrative Narrative: Patient is a 49-year-old male with a history of emphysema, lung cancer, and asthma, presenting with acute onset left-sided neck, clavicular, and shoulder pain, along with increased dyspnea. - Pain began yesterday while sitting on the couch, described as feeling like somebody stabbed me in my collarbone around noon, progressively worsening since. - Pain is localized to the left side of the neck, clavicle, and shoulder, with associated difficulty moving the neck and left arm due to pain. - Reports tingling in the heart and left hand, with occasional sweating and cramping in the hand; hand sometimes feels cold and sometimes hot. - Denies any known trauma or injury. - Increased dyspnea since the onset of pain, more than usual; states he has chronic dyspnea and attributed to emphysema and lung cancer. - Denies sore throat or dysphagia. - Reports a chronic infection in the right leg (self-diagnosed), with swelling beginning 2 months ago; has been taking antibiotics and painkillers given by a friend for the past 1.5 months, with the last dose taken today. - Denies pain in the right leg or arm. - Has a history of emphysema, lung cancer, GI bleeding, and asthma. - Last treatment for lung cancer was 3.5 years ago; has not been following up with a regular doctor or taking medications as prescribed, basically has not seen anybody in that amount of time due to significant life stressors, including the of his mother, brother, and grandmother last year, leading to a lapse in medical care. - Recently attended a cousin's on the , involving prolonged sitting during travel. [facility] Medical History Lung cancer Esophageal mass GI bleed Emphysema lung Asthma Smoker Home Medications ?Medication ?Instructions ?Recorded ?Last Taken ?Type albuterol sulfate 90 mcg/actuation 1 - 2 puff inhalati on PRN PRN 11/28/22 Unknown History aerosol inhaler (Ventolin HFA) Shortness Of Breath Or Wheezing prednisone 20 mg tablet 40 mg (2 x 20 mg) PO DAILY 1 0 days 08/14/25 Unknown Rx #20 tabs tramadol 50 mg tablet 50 mg PO Q6H PRN pain 2 days #8 08/14/25 Unknown Rx tabs Allergy/AdvReac Type Severity Reaction Status Date / Time No Known Allergies Allergy Verified 08/14/25 17:01 Surgical History Hx of cholecystectomy Social History household members: none Smoking Status: Current every day smoker tobacco type: cigarettes and e- cigarettes substance use type: does not use ROS ROS ED Constitutional Constitutional ED: Denies chills or fever(s) Eyes Eyes: Denies change in vision or diplopia ENT ENT ED: Denies ear pain, rhinorrhea or sore throat Cardiovascular Cardiovascular: Reports chest pain; Denies palpitations Respiratory/Chest Respiratory/Chest: Reports dyspnea; Denies cough Gastrointestinal Gastrointestinal: Denies abdominal pain, diarrhea, nausea or vomiting Genitourinary Genitourinary ED: Denies dysuria or hematuria Musculoskeletal Musculoskeletal: Reports extremity pain and neck pain; Denies back pain Integumentary Denies abscess or rash Neurologic Neurologic: Reports paresthesias LUE; Denies headache(s) or weakness Psychiatric Psychiatric: Denies suicidal thoughts EXAM Physical Exam Const Vital Signs: 08/14/25 17:01 Temperature 97.6 F L Temperature Source Temporal Pulse Rate 104 H Respiratory Rate 18 Blood Pressure 117/68 Blood Pressure Mean 84 Pulse Ox 100 Oxygen Delivery Method Room Air Positive well nourished and well developed General Appearance ED: well developed and NAD HEENT Reports moist mucous membranes normocephalic and atraumatic Eyes PERRL and EOMs intact bilaterally Neck full ROM and supple Chest Wall inspection of chest normal Chest Narrative: Very tender in the mid left clavicle especially at the insertion of the sternoc leidomastoid, the distal half of the sternocleidomastoid is also tender but the entire area is normal appearing and normal feeling. No palpable Virchow's node. Chest wall also tender below the clavicle and normal-feeling no subcutaneous emphysema, no skin abnormalities. Resp normal respiratory effort and clear to auscultation bilaterally Resp Narrative: No splinting with deep inspiration Cardio regular rate, regular rhythm and no murmurs Rate: Negative for tachycardic GI non-tender and non-distended Auscultation: normoactive bowel sounds Palpation: soft Back/Spine no CVA tenderness General Back: other FROM Extremity normal to inspection Extremity Narrative: Tender throughout the left upper arm all compartments are soft and nondistended he can move the elbow and the shoulder fully but winces in pain as he does so pointing to his left upper arm. Sensation grossly intact. He has some mild swelling of both anterior knees, prepatellar only without effusion, but they are otherwise normal-appearing, without erythema and he has full range of motion. All compartments of the thigh and lower leg bilaterally are nondistended. General Extremety ED: Yes tenderness; Negative for edema or pulses abnormal General Extremity: Negative for edema or pulses abnormal Neuro oriented x3, CN's II-XII intact bilaterally and no sensory deficits noted Sensorium / Orientation: awake and alert Motor Exam: strength 5/5 throughout Psych Mood & Affect: anxious Skin no rashes or lesions noted and no wounds MDM MDM MDM Narrative Medical decision making narrative: Assessment: The patient is a 49-year-old male with PMH of emphysema, reported lung cancer, asthma, and prior GI bleeding presenting for acute onset (since yesterday) left cervical and supraclavicular pain radiating to the left shoulder, arm, and chest, associated with paresthesias and variable temperature sensation of the left hand. He also reports bilateral anterior knee swelling for several weeks, previously self-treated with non-prescribed antibiotics for presumed infection. Physical exam shows focal tenderness over the left lower cervical/upper thoracic paraspinal region with painful neck and shoulder range of motion, and swelling over both pre-patellar areas without erythema or fluctuance. D-dimer was elevated, but CTA chest and chest X-ray are normal, effectively ruling out pulmonary embolism and acute intrathoracic mass; normal troponin and EKG rule out ACS. Knee findings are consistent with pre-patellar bursitis rather than cellulitis. Overall presentation most consistent with ce rvicalgia and left cervical radiculopathy causing referred arm/chest pain; chest pain is musculoskeletal/neurogenic rather than cardiac. Plan: - Administered ED supportive care; no acute interventions required after negative workup. - Prescribed tramadol for pain (patient with history of GI bleeding so avoiding further NSAIDs). - Initiated short burst of oral steroids for radicular pain and bursitis. - Advised patient to discontinue non-prescribed antibiotics, given no evidence of infection. - Provided education on cervical radiculopathy and pre-patellar bursitis; discussed red-flag return precautions. - Outpatient referral to [facility] for follow-up and further evaluation. - Discharged home in stable condition with above medications and instructions. Diagnostics: - D-dimer elevated (exact value not stated). - Chest X-ray 1v: normal; no consolidation, effusion, or mass. Independently interpreted by Maximino reyes. - CT angiography chest: normal; no pulmonary embolism, no mass or mediastinal lymphadenopathy. Independently interpreted by Maximino reyes. - EKG: normal study. Independently interpreted by Maximino reyes. - Troponin: normal. Reevaluations: - Informed patient of normal imaging and lab results; symptoms unchanged but comfortable with oral medication trial and discharge plan. Portions of this note were generated using voice recognition software ([email or web address]). I have reviewed the contents and every effort has been made to ensure accuracy; however, inadvertent errors in grammar, spelling, punctuation, or word choice may occur, that were not noted before signing the document and should not alter the intended clinical meaning. Discharge Plan Triage Chief Complaint: Upper Extremity Injury ED Provider: Maximino Morales Dx/Rx/DC Orders Clinical Impression: Cervical radiculopathy, Cervicalgia, Left-sided chest pain, Prepatellar bursitis of both knees Instructions: Understanding Prepatellar Bursitis, Cervical Radiculopathy Prescriptions: New prednisone 20 mg tablet 40 mg PO DAILY 10 Days Qty: 20 0RF tramadol 50 mg tablet 50 mg PO Q6H PRN (Reason: pain) 2 Days Qty: 8 0RF No Action albuterol sulfate [Ventolin HFA] 90 mcg/actuation HFA aerosol inhaler 1 - 2 puff INHALATION PRN PRN (Reason: Shortness Of Breath Or Wheezing) Primary Care Provider: Care Physician,No Primary [facility]Non[facility]Staff, Medical] - As soon as possible Print Language: Burkinan Disposition Disposition: Home, Self Care
--- NOTE | 2025-08-14 19:10 | RAD_ITS ---
PROCEDURE: CHEST 1 VIEW (PORTABLE) 08/14/2025 REASON FOR EXAM: CHEST PAIN TECHNIQUE: Frontal view of the chest. COMPARISON: 09/29/2021 FINDINGS: Lungs/Pleura: Clear. Heart/Mediastinum: Normal in size. Bones/Soft tissues: Unremarkable. RAD/Chest 1 View (Portable) IMPRESSION: No acute cardiopulmonary disease. Reading Location: [id number]
[2025-08-14 19:19] LABS: Hematocrit 40.6 % (40-54); Hemoglobin 13.8 g/dL (13.0-16.5); Immature Granulocytes Count 0.010 X10^3/uL (0.0-0.0); Mean Corp Hgb Conc 34.0 g/dL (32-36); Mean Corpuscular Volume 87.1 fL (80-94); Mean Platelet Vol. 8.5 fl (6.2-12.0); NRBC Flagged by Analyzer 0 % (0-5); Platelet Count 340 K/mm3 (150-450); RBC Distribution Width CV 12.9 % (11.6-14.6); RBC Distribution Width SD 40.6 fl (35.1-43.9); Red Blood Count 4.66 M/mm3 (4.6-6.2); White Blood Count 11.1 K/mm3 (4.4-11.0)
[2025-08-14] MEDS: Orphenadrine 60 MG/2 ML Ampul IV (19:20)
[2025-08-14] MEDS: Ketorolac 30 MG/ML Syringe IV (19:20)
[2025-08-14 19:38] LABS: Anion Gap 13 (7-18); BUN 11 mg/dL (4-19); BUN/Creat Ratio 13.2 RATIO (10-20); Calcium,Total 9.7 mg/dL (7.6-11.0); Carbon Dioxide 22.0 mmol/L (20.0-29.0); Chloride 100 mmol/L (96-106); Estimated Creatinine Clearance 122.95 ml/min (50-250); Glucose 97 mg/dL (70-99); Potassium 4.2 mmol/L (3.5-5.1); Troponin T High Sensitivity < 6 ng/L (<=22)
[2025-08-14 19:45] LABS: D-Dimer Quantitative (DVT/PE) 1.17 FEU/ug/m (0.27-0.49)
--- NOTE | 2025-08-14 19:51 | CT_ITS ---
PROCEDURE: CTA CHEST W/WO CONTRAST 08/14/2025 REASON FOR EXAM: CHEST PAIN, ELEVATED D-DIMER TECHNIQUE: Procedure Code: [id number] Modality: CT Procedure: CTA CHEST W/WO CONTRAST Multiplanar Sagittal and Coronal images were obtained. 3D post processing was performed. CONTRAST: Isovue 370 VOLUME: 95 mL One or more dose reduction techniques were used (e.g., Automated exposure control, adjustment of the mA and/or kV according to patient size, use of iterative reconstruction technique). RADIATION DOSE SUMMARY: DLP: 406.94 mGycm COMPARISON: None. FINDINGS: PULMONARY VESSELS: No filling defects suspicious for acute pulmonary arterial emboli. Normal caliber main pulmonary trunk. No evidence of right heart strain. LUNGS/PLEURA: Clear. No airspace consolidation/edema. No pneumothorax or pleural effusion. No suspicious nodules. Mild biapical pleural-parenchymal scarring and subpleural emphysema. MEDIASTINUM: Unremarkable. No lymphadenopathy. HEART: Normal in size. No pericardial effusion. Scant coronary artery calcifications. THORACIC AORTA: Normal. No aneurysm or dissection. Scant atherosclerotic calcifications. UPPER ABDOMEN: Unremarkable, as visualized. BONES: No significant abnormality. CT/CTA Chest W/WO Contrast IMPRESSION: No acute intrathoracic abnormality. No pulmonary arterial emboli. Reading Location: [id number]
[2025-08-14 21:36] VITALS: BP 114/79; PULSE 69; RESP 18; TEMP 36.6; O2SAT 98
== END 2025-08-14 21:37 | disposition home or self-care (01) ==
PROVIDERS: Emergency Provider Emergency Medicine; Visit Provider Emergency Medicine
DX: R07.89 Other chest pain (principal); C34.90 Malignant neoplasm of unspecified part of unspecified bronchus or lung; J43.9 Emphysema, unspecified; M25.512 Pain in left shoulder; M70.41 Prepatellar bursitis, right knee; M70.42 Prepatellar bursitis, left knee; M54.12 Radiculopathy, cervical region; F17.210 Nicotine dependence, cigarettes, uncomplicated; Z79.2 Long term (current) use of antibiotics
CPT/HCPCS: 71045; 71275; 80048; 84484; 85025; 85379; 93005; 96374; 96375; 99284; Q9967; A4216